=== PATIENT | female | born 1965 | race Caucasian/White ===

== ENCOUNTER → 2020-01-29 | Day surgery (SDC) | payer MEDICAID ==
[~2020-01-29] MED LIST: Dexamethasone 4 MG/ML 5 ML MDV IV ONE; Ketamine 200 MG/20 ML MDV IV ONE; Lactated Ringers 1,000 ML IV SCH; Lidocaine 2% 20 ML MDV INJECT ONE; Propofol 200 MG/20 ML SDV IV ONE; ePHEDrine 50 MG/ML SDV IV ONE; fentaNYL 100 MCG/2 ML SDV IV ONE
--- NOTE | 2020-01-29 09:58 | OR ---
DATE OF OPERATION: 01/29/2020 PREOPERATIVE DIAGNOSIS: 1. RIGHT UPPER QUADRANT PAIN. 2. FAMILY HISTORY OF COLON CANCER. POSTOPERATIVE DIAGNOSIS: 1. RIGHT UPPER QUADRANT PAIN. 2. FAMILY HISTORY OF COLON CANCER. SURGEON: Salbador Urrutia MD PROCEDURE: 1. DIAGNOSTIC ESOPHAGOGASTRODUODENOSCOPY WITH BIOPSIES X3, MICHELLE. 2. FULL-LENGTH COLONOSCOPY WITH FORCEPS POLYP REMOVAL X1. ANESTHESIA: MAC. COMPLICATIONS: None. SPECIMEN: 1. Duodenal bulb biopsy x1. 2. Antral biopsy x2. 3. Antral MICHELLE. 4. Splenic flexure polyp. FINDINGS: 1. Full-length diagnostic EGD. 2. Heterotopic gastric tissue, duodenal bulb. 3. Significant distal antral gastritis, peripyloric region. 4. Spontaneous GERD without esophagitis, stricturing, ulceration, or Garces changes. 5. Full-length colonoscopy. 6. Small sessile polyp, splenic flexure, less than 0.5 cm. RECOMMENDATIONS: The patient should be placed on proton pump therapy and aggressively treated for her gastritis. Recommend nicotine cessation. Routine followup colonoscopy in 5 years given polyp removal. INDICATIONS: The patient has been having some ongoing issues with right upper quadrant pain. She had a negative gallbladder ultrasound and HIDA scan along with apparently a CT of the abdomen. Dr. Palma sent her for diagnostic EGD because of a family history of colon cancer. He also sent her for a colonoscopy. DESCRIPTION OF PROCEDURE: The patient was prepped and draped, placed in a left lateral decubitus position. A lubricated Olympus gastroscope was inserted over a bit, advanced to the cricopharyngeus area and easily intubated into the esophagus. The esophageal lining was benign in its entire course. The Z-line was crisp and sharp at 40 cm. There was no hiatal hernia, stricturing, ulceration, or Garces changes. There was some spontaneous reflux, but no esophagitis seen. The scope was advanced into the stomach, through the pylorus, and into the 2nd portion of the duodenum. This was benign. The duodenal bulb, however, did show some heterotopic gastric tissue. Biopsy was taken for confirmation. The scope was brought back into the stomach and retroflexed. The upper fundus and cardia were benign. Upon straightening, the rest of the fundus appeared unremarkable. The antrum has changes of chronic gastritis in its most distal portion of the peripyloric region. There was some active gastritis with some thickening. No ulcerations or erosions were seen. Two biopsies were taken along with a CLOtest from an unaffected area. Air was then suctioned from the stomach and the scope removed without complication. A lubricated Olympus colonoscope was then inserted and easily advanced to the cecum. Direct visualization of the ileocecal valve and appendiceal orifice was accomplished. The bowel prep was fine. Upon withdrawal of the scope, the cecum, ascending, and transverse colon were unremarkable. Near the splenic flexure, the patient had a small sessile polyp approximately 3 to 4 mm in size, it is removed with forceps in its entirety. The descending colon was benign. Throughout the sigmoid and rectosigmoid area, I found no other polyps, masses, ulceration, or bleeding sites. No vascular abnormalities or signs of colitis. No significant diverticula. The rectal vault appeared benign. Completely I could not retroflex as she is very petite and her rectal vault is very shallow. Upon direct withdrawal, no obvious perianal lesions were seen. Air was suctioned. The scope removed without complication. ORLIN/CONCHIS /[id number]
== END ==
LOC: CC.SDS 08:07
PROVIDERS: ATTEND Family Medicine
DX: D12.3 Benign neoplasm of transverse colon (principal); K31.89 Other diseases of stomach and duodenum; K29.70 Gastritis, unspecified, without bleeding; K21.9 Gastro-esophageal reflux disease without esophagitis; F17.210 Nicotine dependence, cigarettes, uncomplicated; Z98.890 Other specified postprocedural states; Z79.899 Other long term (current) drug therapy; Z80.0 Family history of malignant neoplasm of digestive organs; Z01.812 Encounter for preprocedural laboratory examination; Z20.828 Contact with and (suspected) exposure to other viral communicable diseases
CPT/HCPCS: 87081; J1100; J2001; J2704; J3010; J7120